=== PATIENT | female | born 1940 | race American Indian/Alaskan Native ===

== ENCOUNTER 2017-04-19 08:09 | Inpatient (IN) | payer MEDICARE ==
[2017-04-19 08:46] VITALS: BMI 26.9
--- NOTE | 2017-04-19 09:27 | RAD ---
HISTORY: pre-op COMPARISON: No prior. TECHNIQUE: Chest PA and lateral FINDINGS: LUNGS: No active pulmonary disease. PLEURA: No significant pleural effusion identified. No pneumothorax apparent. CARDIOVASCULAR: Normal. OSSEOUS STRUCTURES: No significant abnormalities. VISUALIZED UPPER ABDOMEN: Normal. OTHER FINDINGS: None. IMPRESSION: No active disease.
[2017-04-19 10:09] LABS: BASO % 0.6 % (0.0-2.0); EOS # 0.1 K/uL (0.0-0.7); EOS % 2.4 % (0.0-4.0); HEMATOCRIT 38.5 % (34.0-47.0); LYMPH # 1.3 K/uL (1.0-4.3); LYMPH % 31.7 % (20.0-40.0); MEAN CELL VOLUME 88.1 fl (81.0-99.0); MEAN CORPUSCULAR HEMOGLOBIN 28.6 pg (27.0-31.0); MEAN CORPUSCULAR HGB CONC 32.5 g/dL (33.0-37.0); MEAN PLATELET VOLUME 8.8 fl (7.2-11.7); MONO # 0.5 K/uL (0.0-0.8); MONO % 13.2 % (0.0-10.0); NEUT # 2.1 K/uL (1.8-7.0); NEUT % 52.1 % (50.0-75.0); NRBC % 0.1 % (0.0-0.0); RED CELL DISTRIBUTION WIDTH 15.2 % (11.5-14.5); WHITE BLOOD COUNT 4.1 K/uL (4.8-10.8)
[2017-04-19 10:24] LABS: BLOOD UREA NITROGEN 26 mg/dl (7-17); CALCIUM 9.7 mg/dL (8.4-10.2); CARBON DIOXIDE 28 mmol/L (22-30); CHLORIDE 103 mmol/L (98-107); GFR AFRICAN-AMERICAN > 60; GLUCOSE,RANDOM 113 mg/dL (65-105); SODIUM 141 mmol/l (132-148)
[2017-04-19 10:28] LABS: PARTIAL THROMBOPLASTIN TIME 29.5 Seconds (25.6-37.1)
--- NOTE | 2017-04-19 12:03 | CARD ---
APPROVED REPORT EKG Measurement Heart [id number] <Conclusion> Sinus bradycardia with sinus arrhythmia with 1st degree AV block Otherwise normal ECG
[2017-04-19] MEDS ORDERED: Propofol 10 mg/ml Inj (20 ML) ONE (13:16)
[2017-04-19] MEDS ORDERED: Rocuronium 10 mg/ml (5 ml) ONE ×2 (13:16→15:00)
[2017-04-19] MEDS ORDERED: Midazolam 2 MG/2 ML VIAL ONE (13:16)
[2017-04-19] MEDS ORDERED: Succinylcholine 200 mg/10 ml Inj IV ONE (13:16)
[2017-04-19] MEDS ORDERED: ePHEDrine 50 mg/ml Inj ONE (13:16)
[2017-04-19] MEDS ORDERED: Bupivacaine 0.5% Inj(30mL) ONE (13:22)
[2017-04-19] MEDS ORDERED: Lactated Ringer's 1,000 ML IV ONE ×2 (13:30→14:30)
[2017-04-19] MEDS ORDERED: Vasopressin 20 Units/ml Inj ONE (14:06)
[2017-04-19] MEDS ORDERED: Desflurane Inhalation Anesthetic Liq (240 ml) ONE (14:54)
[2017-04-19] MEDS ORDERED: Labetalol 5mg/ml (4ml) ONE (15:37)
[2017-04-19] MEDS ORDERED: SULFANILAMIDE (AVC) VAG CREAM VG ONE (15:54)
[2017-04-19] MEDS ORDERED: Neostigmine Methylsulfate 3mg/3ml Syringe IV ONE (16:14)
[2017-04-19] MEDS ORDERED: HEMOSTATIC MATRIX 10 ML DIS.NEEDLE TOP ONE (16:17)
[2017-04-19] MEDS ORDERED: Oxycodone/Acetaminophen 5/325 mg Tab PO PRN (16:46)
[2017-04-19] MEDS ORDERED: Albuterol 0.083% Inhal Sol (2.5 mg/3 mL) UD ONE (16:58)
[2017-04-19] MEDS ORDERED: Ipratropium 0.02% Inhal Soln (0.5 mg/2.5 ml) UD IH ONE (17:02)
--- NOTE | 2017-04-19 17:31 | RAD ---
HISTORY: Postop. Portable study 17:14. COMPARISON: April 19, 2017. Preoperative study 08:45. FINDINGS: LUNGS: New left lower lobe infiltrate. PLEURA: No significant pleural effusion identified, no pneumothorax apparent. CARDIOVASCULAR: Normal. OSSEOUS STRUCTURES: No significant abnormalities. VISUALIZED UPPER ABDOMEN: Normal. OTHER FINDINGS: Subcutaneous emphysema at left chest wall laterally. IMPRESSION: New, extensive left lower lobe infiltrate.
--- NOTE | 2017-04-19 20:14 | OP ---
PROCEDURE DATE: 04/19/2017 PREOPERATIVE DIAGNOSES: Postmenopausal bleeding, fibroid uterus, chronic pelvic pain, endometriosis and failure of medical and surgical therapy. POSTOPERATIVE DIAGNOSES: Postmenopausal bleeding, fibroid uterus, chronic pelvic pain, endometriosis and failure of medical and surgical therapy. Additionally, extensive adhesions. PROCEDURE: Robotic total hysterectomy, bilateral salpingo-oophorectomy, lysis of adhesions and attem pted cystoscopy. SURGEON: Dr. Babin. BUSINESS RULES DEVELOPER: Bill. TYPE OF ANESTHESIA: General. ESTIMATED BLOOD LOSS: Approximately 100 mL. SPECIMEN: None. PROCEDURE: The patient was informed of the risk factors, benefits, and alternatives of the procedure . Risk factors included infection, bleeding, damage to surrounding organs and tissue, complication f rom anesthesia and possible . All questions were answered prior to obtaining the consent form. Risk factors were explained, but not limited to, and informed consent was obtained. Once the inform ed consent was obtained, she was then taken to the operating room, prepped and draped in a normal beverley rile fashion. She was placed in a dorsal lithotomy position. In that particular incident a Galindo ca theter was placed into the bladder. A weighted speculum was placed into the vagina. A single tooth tenaculum was used to place on the anterior lip of the cervix. The cervical os was dilated using 8 H ank dilators. A VESIcare, medium size, was then attached to the uterus with the cervical ring. The weighted speculum was then removed from the vagina together with the single-tooth tenaculum. Attenti on was then turned to the umbilical fold, which an incision was made with the scalpel and a nee dle was placed into the abdominal cavity visceral needle CO2 gas was given obtaining 4 liters o f CO2 gas. Once the visceral needle was then removed and an 8 mm trocar and sleeve was then advanced in the abdomen without difficulty. The trocar was removed and the robotic laparoscopy was placed in the abdominal cavity. In that particular instance 4 additional trocars were placed. They were 10 c m on the right and the left away from the umbilicus. They were placed 8 mm under direct visualizatio n and from the umbilicus 2 other ports in the left and right side, 20 cm from the umbilicus also. Ex cellent hemostasis was noted. The uterus was found to be diffusely enlarged and was noted to have ut erine leiomyoma in the lower uterine segment. It was also noted that she had multiple adhesions and evidence of endometriosis and it was also noted that she had a right ovarian cyst. Lysis of adhesion was then performed. In that particular instance through the ports under direct visualization, the P K device and the scissors were placed. So, the left infundibulopelvic ligament was then isolated, ca uterized in 3 continuous areas with the PK. The infundibulopelvic ligament was then cut. The left a dnexa was then from the pelvic sidewall using the PK and the hot scissors. The round ligam ents on the left side was cauterized and cut. The left side of the vesicouterine peritoneum was then excised forming the left side of the bladder flap. The left uterine vascularization was then isolat ed and cauterized. The right ovary appeared to be normal with the additional finding of a right ovar izzy cyst. There were also some adhesions. These adhesions were then carefully lysed using the hot s cissors. The uteroovarian ligament was cauterized with the PK and cut. The proximal fallopian tube was then simultaneously cauterized with the PK and cut with the scissors. The round ligament w as cauterized in 3 continuous areas and cut with the PK. The vesicouterine peritoneum on the right s wilfred was then excised and a fashion forming the right side of the bladder flap. The bladder was then pushed down off the lower uterine segment without difficulty. Uterine vascularization on the r ight was then cauterized and the ring was identified anteriorly and the anterior colpotomy was perfor med. The uterine vascularization and cauterization bilaterally as the colpotomy was excised. Dr. [place] pimentel was able to show me great visualization during the entire case. After complete circumferenti al the scissors from the vaginal cuff and the uterus and left adnexa together with the right were the n delivered through the vagina. The vaginal cuff was then closed with running V-Loc sutures. The pe lvis was irrigated copiously with normal saline. Hemostasis was found to be secured. FloSeal was th en placed at the vaginal cuff. Excellent hemostasis was noted. The trocars were then removed under direct visualization. The 8 mm trocars were closed with 3-0 Monocryl. Excellent hemostasis was note d. Attempt was then done with the cystoscopy. It was noted that her urethral orifice was stenotic, so was unsuccessful. In that particular instance all sponge, needle and instrument counts were found to be correct. The urine in the Galindo bag was noted to be clear. The patient tolerated the procedu re well and was sent to recovery room in excellent condition. Ketty Babin MD cc: [id number] TT: 04/19/2017 20:14:09 dn
[2017-04-20 04:50] LABS: BASO % 0.3 % (0.0-2.0); HEMATOCRIT 36.1 % (34.0-47.0); LYMPH # 0.9 K/uL (1.0-4.3); LYMPH % 8.4 % (20.0-40.0); MEAN CELL VOLUME 87.7 fl (81.0-99.0); MEAN CORPUSCULAR HEMOGLOBIN 28.8 pg (27.0-31.0); MEAN CORPUSCULAR HGB CONC 32.8 g/dL (33.0-37.0); MONO # 0.7 K/uL (0.0-0.8); MONO % 6.4 % (0.0-10.0); NEUT % 84.9 % (50.0-75.0); PLATELET COUNT 165 K/uL (130-400); RED CELL DISTRIBUTION WIDTH 15.1 % (11.5-14.5); WHITE BLOOD COUNT 10.6 K/uL (4.8-10.8)
[2017-04-20 04:56] LABS: ALB/GLOB RATIO 1.2 (1.0-2.1); ALKALINE PHOSPHATASE 50 U/L (38-126); ALT/SGPT 24 U/L (9-52); AST/SGOT 22 U/L (14-36); BILIRUBIN,TOTAL 0.4 mg/dl (0.2-1.3); BLOOD UREA NITROGEN 18 mg/dl (7-17); CARBON DIOXIDE 31 mmol/L (22-30); CHLORIDE 100 mmol/L (98-107); GFR AFRICAN-AMERICAN > 60; GLUCOSE,RANDOM 135 mg/dL (65-105); POTASSIUM 4.2 MMOL/L (3.6-5.0); SODIUM 141 mmol/l (132-148); TOTAL PROTEIN 6.2 G/DL (6.3-8.2)
[2017-04-20 07:17] LABS: NEUTROPHIL 81 % (42-75); REACTIVE LYMPHOCYTES 3 % (0-0); TOTAL CELLS COUNTED 100
[2017-04-20 07:18] LABS: ACANTHOCYTES SLIGHT
[2017-04-20 08:00] VITALS: RESP 18
[2017-04-20] MEDS ORDERED: Patient's Own Med (Lisinopril/Hydrochlorothiazide [Lisinopril-Hctz 20-25 Mg Tab] 1 TAB) PO SCH (09:00)
[2017-04-20] MEDS ORDERED: Levothyroxine 50 MCG TAB PO SCH (09:00)
--- NOTE | 2017-04-20 09:37 | CP.PCM.DIS ---
Provider - Provider Date of Admission: 04/19/17 18:19 Attending physician: Ketty Babin MD Primary care physician: Nadir Saeed MD Time Spent in preparation of Discharge (in minutes): 15 Diagnosis - Discharge Diagnosis (1) Endometriosis Status: Chronic Hospital Course - Lab Results Lab Results: Most Recent Lab Values WBC 10.6 K/uL (4.8-10.8) D 04/20/17 04:05 RBC 4.11 Mil/uL (3.80-5.20) 04/20/17 04:05 Hgb 11.8 g/dL (12.0-16.0) L 04/20/17 04:05 Hct 36.1 % (34.0-47.0) 04/20/17 04:05 MCV 87.7 fl (81.0-99.0) 04/20/17 04:05 MCH 28.8 pg (27.0-31.0) 04/20/17 04:05 MCHC 32.8 g/dL (33.0-37.0) L 04/20/17 04:05 RDW 15.1 % (11.5-14.5) H 04/20/17 04:05 Plt Count 165 K/uL (130-400) 04/20/17 04:05 MPV 9.0 fl (7.2-11.7) 04/20/17 04:05 Neut % (Auto) 84.9 % (50.0-75.0) H 04/20/17 04:05 Lymph % (Auto) 8.4 % (20.0-40.0) L 04/20/17 04:05 [place] % (Auto) 6.4 % (0.0-10.0) 04/20/17 04:05 Eos % (Auto) 0.0 % (0.0-4.0) 04/20/17 04:05 Baso % (Auto) 0.3 % (0.0-2.0) 04/20/17 04:05 Neut # 9.0 K/uL (1.8-7.0) H 04/20/17 04:05 Lymph # 0.9 K/uL (1.0-4.3) L 04/20/17 04:05 [place] # 0.7 K/uL (0.0-0.8) 04/20/17 04:05 Eos # 0.0 K/uL (0.0-0.7) 04/20/17 04:05 Baso # 0.0 K/uL (0.0-0.2) 04/20/17 04:05 Neutrophils % (Manual) 81 % (42-75) H 04/20/17 04:05 Band Neutrophils % 4 % (0-2) H 04/20/17 04:05 Lymphocytes % (Manual) 8 % (20-50) L 04/20/17 04:05 Reactive Lymphs % 3 % (0-0) H 04/20/17 04:05 Monocytes % (Manual) 4 % (0-10) 04/20/17 04:05 Platelet Estimate Normal (NORMAL) 04/20/17 04:05 Hypochromasia (manual) Slight 04/20/17 04:05 Anisocytosis (manual) Slight 04/20/17 04:05 Acanthocytes (Spur) Slight 04/20/17 04:05 Rouleaux Slight 04/20/17 04:05 PT 11.1 Seconds (9.8-13.1) 04/19/17 09:57 INR 1.0 (0.9-1.2) 04/19/17 09:57 APTT 29.5 Seconds (25.6-37.1) 04/19/17 09:57 Sodium 141 mmol/l (132-148) 04/20/17 04:05 Potassium 4.2 MMOL/L (3.6-5.0) 04/20/17 04:05 Chloride 100 mmol/L (98-107) 04/20/17 04:05 Carbon Dioxide 31 mmol/L (22-30) H 04/20/17 04:05 Anion Gap 14 (10-20) 04/20/17 04:05 BUN 18 mg/dl (7-17) H 04/20/17 04:05 Creatinine 1.0 mg/dL (0.7-1.2) 04/20/17 04:05 Est GFR ( Amer) > 60 04/20/17 04:05 Est GFR (Non-Af Amer) 54 04/20/17 04:05 POC Glucose (mg/dL) 183 mg/dL (65-110) H 04/19/17 18:01 Random Glucose 135 mg/dL (65-105) H 04/20/17 04:05 Calcium 9.0 mg/dL (8.4-10.2) 04/20/17 04:05 Total Bilirubin 0.4 mg/dl (0.2-1.3) 04/20/17 04:05 AST 22 U/L (14-36) 04/20/17 04:05 ALT 24 U/L (9-52) 04/20/17 04:05 Alkaline Phosphatase 50 U/L (38-126) 04/20/17 04:05 Total Protein 6.2 G/DL (6.3-8.2) L 04/20/17 04:05 Albumin 3.4 g/dL (3.5-5.0) L 04/20/17 04:05 Globulin 2.9 gm/dL (2.2-3.9) 04/20/17 04:05 Albumin/Globulin Ratio 1.2 (1.0-2.1) 04/20/17 04:05 Blood Type O POSITIVE 04/19/17 09:57 Antibody Screen Negative 04/19/17 09:57 BBK History Checked Patient has bt 04/19/17 09:57 - Hospital Course Hospital Course: The patient is a 77 y/o woman w/ postmenopausal bleeding, fibroids, and endometriosis presents for robotic total hysterectomy and BLSO. The patient tolerated the procedure well with no complications. The patient's lab work was WNL but did have new left lower lobe opacity seen on 04/19/2017. Repeat CXR on 04/20/2017 showed much reduced opacity. The patient had hernandez removed and is voiding freely. The patient is tolerating regular diet and has no other complaints. The patient has been examined and deemed medically fit with no contraindication for discharge home. The patient was asked to follow up w/ Dr. Babin on 04/23/[address] Saeed in 1 week. Discharge Exam - Head Exam Head Exam: ATRAUMATIC, NORMOCEPHALIC - Eye Exam Eye Exam: EOMI - Respiratory Exam Respiratory Exam: absent: Rales, Rhonchi, Wheezes, Respiratory Distress - Cardiovascular Exam Cardiovascular Exam: REGULAR RHYTHM - GI/Abdominal Exam GI & Abdominal Exam: Normal Bowel Sounds, Soft. absent: Distended, Tenderness - Neurological Exam Neurological exam: Alert, Oriented x3 - Skin Skin Exam: Dry, Intact, Normal Color, Warm Discharge Plan - Follow Up Plan Condition: GOOD Disposition: HOME/ ROUTINE Referrals: Nadir Saeed MD [Primary Care Provider] -
[2017-04-20 12:27] VITALS: BP 124/69; PULSE 61; TEMP 98.7; O2SAT 97
--- NOTE | 2017-04-20 17:02 | RAD ---
HISTORY: post op COMPARISON: Comparison chest 04/19/2017 FINDINGS: LUNGS: Interval improvement previously noted patchy left lower lobe infiltrate with mild residual atelectasis and or infiltrate changes noted. . Questionable small nodular density medial aspect left lung apex overlying the left medial 4th rib. Followup nonemergent CT scan of the chest could be performed further evaluation. PLEURA: No significant pleural effusion identified, no pneumothorax apparent. CARDIOVASCULAR: Normal. OSSEOUS STRUCTURES: Mild multilevel degenerative spondylosis. Mild degenerative changes both shoulder girdles. VISUALIZED UPPER ABDOMEN: Normal. OTHER FINDINGS: None. IMPRESSION: Interval improvement previously noted patchy left lower lobe infiltrate with mild residual atelectasis and or infiltrate changes noted. Questionable small nodular density medial aspect left lung apex overlying the left medial 4th rib. Followup nonemergent CT scan of the chest could be performed further evaluation.
== END 2017-04-20 13:55 | disposition home or self-care (01) | DRG 743 ==
LOC: H.OPSURG 08:09 → H.TEL 18:19
PROVIDERS: ADMIT Obstetrics & Gynecology; ATTEND Obstetrics & Gynecology
PROC: 0UTC0ZZ Resection of Cervix, Open Approach (ICD-10-PCS; 2017-04-19)
PROC: 0UN90ZZ Release Uterus, Open Approach (ICD-10-PCS; 2017-04-19)
PROC: 0UT70ZZ Resection of Bilateral Fallopian Tubes, Open Approach (ICD-10-PCS; 2017-04-19)
PROC: 0UT20ZZ Resection of Bilateral Ovaries, Open Approach (ICD-10-PCS; 2017-04-19)
PROC: 8E0W4CZ Robotic Assisted Procedure of Trunk Region, Percutaneous Endoscopic Approach (ICD-10-PCS; 2017-04-19)
PROC: 0TJB8ZZ Inspection of Bladder, Via Natural or Artificial Opening Endoscopic (ICD-10-PCS; 2017-04-19)
PROC: 0UT90ZZ Resection of Uterus, Open Approach (ICD-10-PCS; principal; 2017-04-19 10:45)
DX: D25.9 Leiomyoma of uterus, unspecified (principal); E11.9 Type 2 diabetes mellitus without complications; I10 Essential (primary) hypertension; E03.9 Hypothyroidism, unspecified; G89.29 Other chronic pain; N80.9 Endometriosis, unspecified; R10.2 Pelvic and perineal pain; N95.0 Postmenopausal bleeding